=== PATIENT | female | born 1995 | race African-American/Black ===

== ENCOUNTER 2020-04-30 17:24 | Emergency (ER) | payer BC, OTHER ==
[2020-04-30] MEDS ORDERED: dexAMETHasone 10 MG/ML VIAL ONE (18:11)
[2020-04-30 18:21] VITALS: BP 151/110; TEMP 99.1; O2SAT 100
--- NOTE | 2020-04-30 21:37 | EDPHYS ---
Physician Documentation [facility] Name: Arline Newby Age: 24 yrs Sex: Female : 1995 Arrival Date: 04/30/2020 Time: 17:33 Bed 6 Private MD: ED Physician Say Rodriguez HPI: 04/30 17:56 This 24 yrs old Black Female presents to ER via Ambulatory with complaints of Cold jmm Symptoms, Flu Symptoms. 17:56 The patient or guardian reports cough. Onset: The symptoms/episode began/occurred jmm gradually, 1 day(s) ago. Modifying factors: The symptoms are alleviated by nothing. the symptoms are aggravated by nothing. Associated signs and symptoms: Pertinent positives: fever, sore throat. The patient has experienced similar episodes in the past. Historical: - Allergies: 17:36 No Known Drug Allergies; ll1 - PSHx: 17:36 None; ll1 - Immunization history:: Flu vaccine is not up to date. - Social history:: Smoking status: Patient reports the use of cigarette tobacco products, smokes one pack cigarettes per day. Patient/guardian denies using alcohol, street drugs. ROS: 17:56 Constitutional: Positive for body aches, chills. jmm 17:56 ENT: Positive for sore throat. 17:56 Respiratory: Positive for cough, Negative for shortness of breath. 17:56 All other systems are negative. Exam: 17:56 Constitutional: This is a well developed, well nourished patient who is awake, alert, jmm and in no acute distress. Head/Face: atraumatic. Eyes: EOMI, no conjunctival erythema appreciated 17:56 Neck: Trachea midline, Supple Chest/axilla: Normal chest wall appearance and motion. Cardiovascular: Regular rate and rhythm. No edema appreciated Respiratory: Normal respirations, no respiratory distress appreciated Abdomen/GI: Non distended, soft Back: Normal ROM Skin: General appearance color normal MS/ Extremity: Moves all extremities, no obvious deformities appreciated, no edema noted to the lower extremities Neuro: Awake and alert, normal gait Psych: Behavior is normal, Mood is normal, Patient is cooperative and pleasant 17:56 ENT: Posterior pharynx: erythema, that is mild. Vital Signs: 17:37 BP 151 / 110; Pulse 74; Resp 17; Temp 99.1; Pulse Ox 100% ; Height 5 ft. 1 in. (154.94 ll1 cm); Pain 0/10; MDM: 17:51 Patient medically screened. [facility] 17:57 Data reviewed: vital signs, nurses notes. Counseling: I had a detailed discussion with karena the patient and/or guardian regarding: the historical points, exam findings, and any diagnostic results supporting the discharge/admit diagnosis, the need for outpatient follow up, to return to the emergency department if symptoms worsen or persist or if there are any questions or concerns that arise at home. ED course: Patient is alert and non toxic in appearance in the ED. Patient declined COVID-19 swab. Patient is given strict return precautions. Patient understood and agrees with the plan of care. . 04/30 17:56 Order name: Strep karena Administered Medications: 18:09 Drug: Decadron 10 mg Route: IM; Site: right deltoid; vc 18:12 Follow up: Response: No adverse reaction sv Disposition: 18:50 Co-signature as Attending Physician, Say Rodriguez MD. rn Disposition: 04/30/20 17:58 Discharged to Home. Impression: Acute pharyngitis, Acute upper respiratory infection, unspecified. - Condition is Stable. - Discharge Instructions: Pharyngitis, Upper Respiratory Infection, Adult. - Prescriptions for Zithromax Z- Aron 250 mg Oral Tablet - take 1 tablet by ORAL route as directed for 5 days Day 1 - take two (2) tablets one time. Day 2, 3, 4 , 5 take one (1) tablet once daily.; 6 tablet. - Medication Reconciliation Form, Thank You Letter, Antibiotic Education, Prescription Opioid Use form. - Follow up: Private Physician; When: 2 - 3 days; Reason: Recheck today's complaints, Continuance of care, Re-evaluation by your physician. Signatures: Dispatcher [employer] Roxy Cabrera RN RN sv Mickail, Joel, PA PA jmm Nieto, Roman, MD MD rn Calcote, Vanessa, RN RN vc Lewis, Lynsay, RN RN ll1 Corrections: (The following items were deleted from the chart) 18:15 17:58 04/30/2020 17:58 Discharged to Home. Impression: Acute pharyngitis; Acute upper sv respiratory infection, unspecified. Condition is Stable. Forms are Medication Reconciliation Form, Thank You Letter, Antibiotic Education, Prescription Opioid Use. Follow up: Private Physician; When: 2 - 3 days; Reason: Recheck today's complaints, Continuance of care, Re-evaluation by your physician. karena
--- NOTE | 2020-04-30 21:37 | ER ---
Nurse's Notes [facility] Name: Arline Newby Age: 24 yrs Sex: Female : 1995 Arrival Date: 04/30/2020 Time: 17:33 Bed 6 Private MD: Diagnosis: Acute pharyngitis;Acute upper respiratory infection, unspecified Presentation: 04/30 17:37 Chief complaint: Patient states: Cough, sore throat, and body aches since last night. ll1 Coronavirus screen: Patient reports a cough. Patient denies shortness of breath or difficulty breathing. Patient denies measured and/or subjective temperature greater than 100.4F prior to today's visit. Patient denies travel on a cruise ship or to a country the [facility] currently lists as an affected area. Patient denies contact with known and/or suspected case of COVID-19. Patient instructed to continue to wear a mask when interacting with others. Patient moved to private room, placed in contact and droplet isolation with eye protection until further assessment. Ebola Screen: Patient denies travel to an Ebola-affected area in the 21 days before illness onset. Initial Sepsis Screen: Does the patient meet any 2 criteria? No. Patient's initial sepsis screen is negative. Risk Assessment: Do you want to hurt yourself or someone else? Patient reports no desire to harm self or others. Onset of symptoms was April 29, 2020. 17:37 Method Of Arrival: Ambulatory ll1 17:37 Acuity: MARY 4 ll1 18:14 Initial Sepsis Screen:. vc 18:15 Initial Sepsis Screen: Does the patient have a suspected source of infection? No. sv Patient's initial sepsis screen is negative. Historical: - Allergies: 17:36 No Known Drug Allergies; ll1 - PSHx: 17:36 None; ll1 - Immunization history:: Flu vaccine is not up to date. - Social history:: Smoking status: Patient reports the use of cigarette tobacco products, smokes one pack cigarettes per day. Patient/guardian denies using alcohol, street drugs. Screenin:13 Abuse screen: Denies threats or abuse. Denies injuries from another. Nutritional sv screening: No deficits noted. Tuberculosis screening: No symptoms or risk factors identified. Fall Risk None identified. Assessment: 18:09 Reassessment: Patient to be discharged after shot time. vc 18:13 General: Appears in no apparent distress. comfortable, Behavior is calm, cooperative, sv appropriate for age. Pain: Complains of pain in throat. Neuro: Level of Consciousness is awake, alert, obeys commands, Oriented to person, place, time, situation, Moves all extremities. Full function Gait is steady. Respiratory: Respiratory effort is even, unlabored, Respiratory pattern is regular, symmetrical. Derm: Skin is pink, warm \T\ dry. Vital Signs: 17:37 BP 151 / 110; Pulse 74; Resp 17; Temp 99.1; Pulse Ox 100% ; Height 5 ft. 1 in. (154.94 ll1 cm); Pain 0/10; ED Course: 17:33 Patient arrived in ED. fj1 17:38 Triage completed. ll1 17:38 Arm band placed on Patient placed in an exam room, on a stretcher. 1 17:41 Devang Fink PA is PHCP. [facility] 17:41 Say Rodriguez MD is Attending Physician. [facility] 17:45 Roxy Wilson RN is Primary Nurse. sv 18:12 No provider procedures requiring assistance completed. Patient did not have IV access sv during this emergency room visit. 18:13 Patient has correct armband on for positive identification. sv Administered Medications: 18:09 Drug: Decadron 10 mg Route: IM; Site: right deltoid; vc 18:12 Follow up: Response: No adverse reaction sv Outcome: 17:58 Discharge ordered by . jmm 18:12 Discharged to home ambulatory. sv 18:12 Condition: stable 18:12 Discharge instructions given to patient, Instructed on discharge instructions, follow up and referral plans. medication usage, Demonstrated understanding of instructions, follow-up care, medications, Prescriptions given X 1. 18:15 Patient left the ED. sv Signatures: Roxy Wilson RN RN Devang Fink PA PA jmm Calcote, Vanessa, RN RN vc James, Frank [facility] Yoselin Cohen RN RN [facility]
== END 2020-04-30 18:15 | disposition home or self-care (01) ==
LOC: ER 17:24
DX: J02.9 Acute pharyngitis, unspecified (principal); F17.210 Nicotine dependence, cigarettes, uncomplicated
CPT/HCPCS: 87070; 87081; J1100; 96372; 99283

== ENCOUNTER 2020-08-31 | Emergency (ER) | payer OTHER ==
--- OUTSIDE RECORDS SUMMARY | 2020-08-31 17:59 | XMS REPORT | Continuity of Care Document ---
:1995 Author Organization [facility] t Address [address] [place] [address] Care Team Providers Name Role Phone Unavailable Unavailable Unavailable Problems This patient has no known problems. Allergies, Adverse Reactions, Alerts This patient has no known allergies or adverse reactions. Medications Ordered Filled Start Stop Current Ordering Indication Dosage Frequency Signature Comments Components Source Medication Medication Date Date Medication? Clinician (SIG) Name Name Suzette Bradford Na Plaza [address] [facility] Procedures This patient has no known procedures. Encounters Start End Encounter Admission Attending Care Care Encounter Source Date/Time Date/Time Type Type Clinicians Facility Department ID 2020-08-24 2020-08-24 Outpatient [facility] [id number] [facility] 2020-07-13 2020-07-13 Outpatient [facility] [id number] [facility] 2020-06-16 2020-06-16 [facility] [id number] 2020-05-31 2020-05-31 [facility] [id number] [facility] [address] 12[facility]44[facility]00 12:44:00 [employer] [facility] Clin[facility] 2020-05-21 2020-05-21 [facility] [id number] [facility] [address] 08:06:00 08:06:00 [employer] [facility] 2020-05-18 2020-05-18 Outpatient Emily Dubon [id number] [facility] [address] 15:20:00 15:20:00 [employer] [facility] ent Clinics Results This patient has no known results.
--- OUTSIDE RECORDS SUMMARY | 2020-08-31 17:59 | XMS REPORT ---
:1995 Author Organization [employer] Care Team Providers Name Role Phone Plaza, Na Provider Role Unavailable Allergies No Known Allergies Problems Problem Type Condition Code Onset Dates Condition Statu s Problem Depression with anxiety F41.8 Acti ve Problem Memory deficit R41.3 Active Problem Vitamin D deficiency E55.9 Active Problem Seasonal allergic rhinitis, J30.2 Active unspecified trigger Problem Autism F84.0 Active Problem Thyroid goiter E04.9 Active Medications Medication Code Code Instructions Start End Status Dosage System Date Date Ergocalciferol [facility] [id number] 69422 UNIT May 31, Aug 28, Active 1 capsule Orally once a 20192019 Results No Known Results Summary Purpose [employer] Submission
--- OUTSIDE RECORDS SUMMARY | 2020-08-31 18:00 | XMS REPORT ---
:1995 Author Organization [facility] Address [address] [place], [facility] [address] [place] [address] Care Team Providers Name Role Phone Plaza Unavailable [phone] PROBLEMS Type Condition ICD9-CM [id number] Onset Condition SNOMED Code Notes Code Code Dates Status Problem Depression with F41.8 Active 086395631 anxiety Problem Vitamin D E55.9 Active 37907034 deficiency Problem Seasonal J30.2 Active 593747693 allergic rhinitis, unspecified trigger Problem Thyroid goiter E04.9 Active 0788133 Problem Autism F84.0 Active 047153136 Problem Memory deficit R41.3 Active 031820968 ALLERGIES No Known Allergies ENCOUNTERS from 1995 to 2020-06-28 Encounter Location Date Provider Diagnosis [facility] [address] [place] [address] Jun, 2020 [place] [address] IMMUNIZATIONS No Information SOCIAL HISTORY Tobacco Use: Social History Observation Description Date Details (start date - stop date) Current Smoker Sex Assigned At : Social History Observation Description Sex Assigned At Unknown PHQ9 Question Answer Notes Little interest or pleasure in doing things Several days Feeling down, depressed, or hopeless Several days Trouble falling or staying asleep or sleeping too much Not a t all Feeling tired or having little energy Not at all Poor appetite or overeating Not at all Feeling bad about yourself, or that you are a failure, or salazar ve Several days let yourself or your family down Trouble concentrating on things, such as reading the newspap er Several days or watching television Moving or speaking so slowly that other people could have Se veral days noticed; or the opposite, being so fidgety or restless that you have been moving around a lot more than usual Total Score 5 Interpretation Mild Depression Thoughts that you would be better off or of hurting Not at all yourself in some way Tobacco Use/Smoking Question Answer Notes Are you a current smoker REASON FOR REFERRAL No Information VITAL SIGNS No information MEDICATIONS Medication SIG (Take, Route, Start Date End Date Status Frequency, Duration) Ergocalciferol 98732 UNIT 1 capsule Orally once a 27 May, 2020 N 2019 Active week for 90 days PROCEDURES No Information RESULTS No Results REASON FOR VISIT thyroid us nodule MEDICAL (GENERAL) HISTORY Type Description Date Medical History Allergic rhinitis Medical History Depression Medical History Memory problem Medical History Anxiety Surgical History tubes in ear 1998 Surgical History 2017 Goals Section No Information Health Concerns No Information MEDICAL EQUIPMENT No Information MENTAL STATUS No Information FUNCTIONAL STATUS No Information ASSESSMENTS No Information PLAN OF TREATMENT Medication Medication Name Sig Start Date Stop Date Ergocalciferol 73122 UNIT 1 capsule Orally once a week for 27 2019Aug, 90 days Next Appt Details Provider Name:Mamie Plaza, 2020-07-13 09:0 0:00 AM, [address], [address], [place], [address], Insurance Providers Payer Name Payer Address Payer Insured Patient Coverage Cover age Phone Name Relationship to Start Date End Date Insured MEDICARE Attn Part B [id number] Cj Newby deborah 2018 [employer] Claims [phone] a M [address] [facility] [id number]
--- OUTSIDE RECORDS SUMMARY | 2020-08-31 18:00 | XMS REPORT ---
:1995 Author Organization [facility] Address [address], [address] [place] [address] Care Team Providers Name Role Phone Plaza Unavailable [phone] PROBLEMS Type Condition ICD9-CM [id number] Onset Condition SNOMED Code Notes Code Code Dates Status Problem Vitamin D E55.9 Active 27624200 deficiency Problem Depression with F41.8 Active 079754334 anxiety Problem Thyroid nodule E04.1 Active 999034550 Problem Seasonal J30.2 Active 964676875 allergic rhinitis, unspecified trigger Problem Thyroid goiter E04.9 Active 3043024 Problem Autism F84.0 Active 788867372 Problem Memory deficit R41.3 Active 410348843 ALLERGIES No Known Allergies ENCOUNTERS from 1995 to 2020-07-16 Encounter Location Date Provider Diagnosis [facility] [address] [facility] [address] [place] Jul, Na Plaza Vit rojo D deficiency [facility] [address], E55.9 ; [place] [address] with anxiety F 41.8 ; Seasonal allerg ic rhinitis, unspe cified trigger J30.2 a nd Thyroid nodule E04.1 IMMUNIZATIONS No Information SOCIAL HISTORY Tobacco Use: [...] REASON FOR REFERRAL No Information VITAL SIGNS Height 61.00 in Jul, Weight 178.4 lbs Jul, Temperature 98.1 degrees Fahrenheit Jul, BMI 33.70 kg/m2 Jul, Oximetry 98 % Jul, Respiratory Rate 16 /min Jul, Blood pressure systolic 131 mm Hg Jul, Blood pressure diastolic 76 mm Hg Jul, MEDICATIONS Medication SIG (Take, Route, Start Date End Date Status Frequency, Duration) Ergocalciferol 98746 UNIT 1 capsule Orally once a Jul, 6 2020 Active week for 90 days Ergocalciferol 65175 UNIT 1 capsule Orally once a May, 24 N 2019 Active week for 90 days PROCEDURES No Information RESULTS No Results REASON FOR VISIT lab f/u & flu shot, low vit D MEDICAL (GENERAL) HISTORY Type Description Date Medical History Allergic rhinitis Medical History Depression Medical History Memory problem Medical History Anxiety Surgical History tubes in ear 1998 Surgical History 2017 Goals Section No Information Health Concerns No Information MEDICAL EQUIPMENT No Information MENTAL STATUS No Information FUNCTIONAL STATUS No Information ASSESSMENTS Encounter Date Diagnosis Notes Jul, Depression with anxiety (ICD-10 - F41.8) Jul, Vitamin D deficiency (ICD-10 - E55.9) Jul, Seasonal allergic rhinitis, unspecified trigger (ICD-10 - J30.2) Jul, Thyroid nodule (ICD-10 - E04.1) PLAN OF TREATMENT Medication Medication Name Sig Start Date Stop Date Ergocalciferol 96485 UNIT 1 capsule Orally once a week for 2019Oct, 90 days Treatment Notes Assessment Notes Clinical Notes Vitamin D deficiency Increase foods rich in vitamin D such as leafy greens, low fat milk or yogurt. Stay physically active.For strong bones and osteoprosis prevention take calcium 1200mg daily and vitamin D3 (2,000mg) daily. continue to stay physically active and do weight bearing exercises.-- after completion of high dose vit D 3 month course, pt will need to take otc supplement vit D 3 = 2,0000iU daily to maintain normal level of vit D in body. Depression with anxiety continue current meds daily. Avoid caffeine. Make sure to exercise daily, take deep breaths, meditate, take frequent breaks. Take yourself away from the situation causing anxiety and stress by going for a 10-15 minute walk. Seasonal allergic rhinitis, Allergies- avoid triggers. Use unspecified trigger zyrtec or claritin otc once daily in AM to help control watery itchy eyes and runny nose. Use Flonase nasal spray two sprays once a day to help decrease inflammation and decrease nasal drainage/post nasal drip. Use saline nasal mist or irrigation as directed. Thyroid nodule thyroid nodule 06/08/20 repeat in 1 year to monitor stability. due 06/2021 Next Appt Details [employer] CHILANGO castillo/Katya f/u ozzie in 6 weeks Reason: Provider Name:Mamie Plaza 2020-07-27 02:0 0:00 PM, [address], [address], [place], [address], Provider Name:Mamie Plaza 2020-08-24 09:2 0:00 AM, [address], [address], [place], [address], Insurance Providers Payer Name Payer Address Payer Insured Patient Coverage Cover age Phone Name Relationship to Start Date End Date Insured [place] [address] [address] [phone] Cj Newby self 2019 [facility] [phone] a M [phone] MEDICARE Attn Part B [id number] Cj Newby self 2018 [employer] Claims [phone] a M [address] [place] [address]
--- OUTSIDE RECORDS SUMMARY | 2020-08-31 18:00 | XMS REPORT ---
:[address] [facility] Address [address], [address] [place] [address] Care Team Providers Name Role Phone Plaza Unavailable [phone] PROBLEMS Type Condition ICD9-CM [id number]-SS Onset Condition SNOMED Code Notes Code Code Dates Status Problem Vitamin D E55.9 Active 40636694 deficiency Problem Depression F41.8 Active 753444524 with anxiety Problem Thyroid nodule E04.1 Active 978116203 06/2021 next US due, stable thyroid nodule 06/08/2020 Problem Seasonal J30.2 Active 289729683 allergic rhinitis, unspecified trigger Problem Thyroid goiter E04.9 Active 9919420 Problem Autism F84.0 Active 977885588 Problem Memory deficit R41.3 Active 003212089 ALLERGIES No Known Allergies ENCOUNTERS from 1995 to 2020-08-30 Encounter Location Date Provider Diagnosis [facility] [address] [place] Aug, Na Plaza Thy roid nodule E04.1 ; Family Medicine [address], [place] [address] E55.9 ; Depres [place] with anxiety F4 1.8 and Seasonal allerg ic rhinitis, unspe cified trigger J30.2 IMMUNIZATIONS No Information SOCIAL HISTORY Tobacco Use: [...] No Information VITAL SIGNS Height 61.00 in Aug, Weight 180.4 lbs Aug, Temperature 97.9 degrees Fahrenheit Aug, BMI 34.08 kg/m2 Aug, Oximetry 98 % Aug, Respiratory Rate 15 /min Aug, Blood pressure systolic 121 mm Hg Aug, Blood pressure diastolic 56 mm Hg Aug, MEDICATIONS Medication SIG (Take, Route, Notes Start Date End Date Status Frequency, Duration) Ergocalciferol 48651 UNIT 1 capsule Orally once a Active week for 90 days PROCEDURES No Information RESULTS No Results REASON FOR VISIT 6 week follow up, low vitamin D MEDICAL (GENERAL) HISTORY Type Description Date Medical History Allergic rhinitis Medical History Depression Medical History Memory problem Medical History Anxiety Surgical History tubes in ear 1998 Surgical History 2017 Goals Section No Information Health Concerns No Information MEDICAL EQUIPMENT No Information MENTAL STATUS No Information FUNCTIONAL STATUS No Information ASSESSMENTS Encounter Date Diagnosis Assessment Notes Treatment Notes Treatm ent Clinical Notes Aug, Thyroid nodule 06/2021 next US thyroid nodule (ICD-10 - E04.1) due, stable 06/08/20 repeat in 1 thyroid nodule year to monitor 06/08/2020 stability. due 06/2021Aug, Vitamin D Increase foods deficiency rich in vitamin D (ICD-10 - E55.9) such as leafy greens, low fat milk or yogurt. Stay physically active. For strong bones and osteoprosis prevention take calcium 1200mg daily and vitamin D3 (2,000mg) daily. continue to stay physically active and do weight bearing exercises. -- after completion of high dose vit D 3 month course, pt will need to take otc supplement vit D 3 = 2,0000iU daily to maintain normal level of vit D in body. Aug, Depression with continue current anxiety (ICD-10 - meds daily. Avoid F41.8) caffeine. Make sure to exercise daily, take deep breaths, meditate, take frequent breaks. Take yourself away from the situation causing anxiety and stress by going for a 10-15 minute walk. Aug, Seasonal allergic Allergies- avoid rhinitis, triggers. Use unspecified zyrtec or claritin trigger (ICD-10 - otc once daily in J30.2) AM to help control watery itchy eyes and runny nose. Use Flonase nasal spray two sprays once a day to help decrease inflammation and decrease nasal drainage/post nasal drip. Use saline nasal mist or irrigation as directed. Aug, Other -- Medications reviewed and updated. -- Dietary and Lifestyle modifications discussed with patient regardi ng low fat low kirsty t diet diet, exer cise and weight management. -- Treatment options, risks and benefits, side effects reviewe d in detail. Patient accepts risk. -- Advised on signs/symptoms to monitor and whe n to call clinic and /or visit the [facility]. Patient verbalized understanding a nd agreed with александр n. -- Greater than 15 minutes was spe nt with patient du ring this encounter, of which >50% of t he time was spent counseling and coordinating ca re including but n ot limited to discussion of t est results, diagno stic or treatment recommendations , prognosis, risk s and benefits of management opti ons, instructions, education, compliance and or risk reduction. PLAN OF TREATMENT Medication Medication Name Sig Start Date Stop Date Ergocalciferol 88746 UNIT 1 capsule Orally once a week for 90 days Treatment Notes Assessment Notes Clinical Notes Thyroid nodule thyroid nodule 06/08/20 repeat in 1 year to monitor stability. due 06/2021 Vitamin D deficiency Increase foods rich in [...] saline nasal mist or irrigation as directed. Next Appt Details 6 Months Reason: Insurance Providers Payer Name Payer Address Payer Insured Patient Coverage Cover age Phone Name Relationship to Start Date End Date Insured MEDICARE Attn Part B [id number] Cj Newby 2018 [employer] Claims [phone] a M [address] [place] [address] [employer] [address] [address] [phone] Cj Newby 2019 [facility] [phone] a M [phone]
--- NOTE | 2020-08-31 18:16 | EDPHYS ---
Physician Documentation [facility] Name: Arline Newby Age: 25 yrs Sex: Female : 1995 Arrival Date: 08/31/2020 Time: 17:59 Bed 20 Private MD: ED Physician Sheri Boateng HPI: 08/31 18:58 This 25 yrs old Black Female presents to ER via EMS with complaints of mother forced pt kb to come. 18:58 Pt reports her mother has "legal guardianship" over her and tonight she called the senior validation engineer kb to prove a point and they all made her come to the ER. Pt states her mother is trying to make plans for her and they got into an argument because she told the mother she wasn't going to cancel plans with her fiance to do whatever the mother wanted her to do. This led up to the mother calling the police to prove that she has full authority over the pt. Pt reports "I'm happy and thriving, I don't know why she is doing this now." Pt denies suicidal or homicidal ideations. . The patient has not experienced similar symptoms in the past. The patient has not recently seen a physician. I spoke with mother. Mother states "She lives in her own apartment in the same complex as me. She moved this boy in with her and ever since then she doesn't want to go to therapy or do any of the things she needs to do. She won't let me into the apartment to check on things. I called the senior validation engineer to force her to go to therapy, but they said we should come to the ER and y'all could transfer her to an inpatient hospital for therapy. I'm trying to get rid of the boy, but they told me how to do that.". WOOD FENCE ERECTOR: 18:20 LMP 08/10/2020 ca1 Historical: - Allergies: 18:06 No Known Allergies; em - Home Meds: 18:06 None [Active]; em - PMHx: 18:06 None; em - PSHx: 18:06 None; em - Immunization history:: Adult Immunizations up to date. - Social history:: Smoking status: Patient denies any tobacco usage or history of. ROS: 18:58 Constitutional: Negative for fever, chills, and weight loss, Cardiovascular: Negative kb for chest pain, palpitations, and edema, Respiratory: Negative for shortness of breath, cough, wheezing, and pleuritic chest pain, Abdomen/GI: Negative for abdominal pain, nausea, vomiting, diarrhea, and constipation, MS/Extremity: Negative for injury and deformity, Skin: Negative for injury, rash, and discoloration, Neuro: Negative for headache, weakness, numbness, tingling, and seizure, Psych: Negative for depression, anxiety, suicide ideation, homicidal ideation, and hallucinations. Exam: 18:58 Constitutional: This is a well developed, well nourished patient who is awake, alert, kb and in no acute distress. Head/Face: Normocephalic, atraumatic. Chest/axilla: Normal chest wall appearance and motion. Nontender with no deformity. No lesions are appreciated. Cardiovascular: Regular rate and rhythm with a normal S1 and S2. No gallops, murmurs, or rubs. Normal PMI, no JVD. No pulse deficits. Respiratory: Lungs have equal breath sounds bilaterally, clear to auscultation and percussion. No rales, rhonchi or wheezes noted. No increased work of breathing, no retractions or nasal flaring. Abdomen/GI: Soft, non-tender, with normal bowel sounds. No distension or tympany. No guarding or rebound. No evidence of tenderness throughout. Skin: Warm, dry with normal turgor. Normal color with no rashes, no lesions, and no evidence of cellulitis. MS/ Extremity: Pulses equal, no cyanosis. Neurovascular intact. Full, normal range of motion. Neuro: Awake and alert, GCS 15, oriented to person, place, time, and situation. Cranial nerves II-XII grossly intact. Motor strength 5/5 in all extremities. Sensory grossly intact. Cerebellar exam normal. Normal gait. Psych: Awake, alert, with orientation to person, place and time. Behavior, mood, and affect are within normal limits. Vital Signs: 18:01 Pulse 87; Resp 18; Temp 98.4(O); Pulse Ox 100% on R/A; Pain 0/10; em 18:19 BP 148 / 87; ca1 MDM: 18:09 Patient medically screened. kb 18:14 Data reviewed: vital signs, nurses notes. Data interpreted: Pulse oximetry: on room air kb is 100 %. Interpretation: normal. Counseling: I had a detailed discussion with the patient and/or guardian regarding: the historical points, exam findings, and any diagnostic results supporting the discharge/admit diagnosis, the need for outpatient follow up, a family practitioner, to return to the emergency department if symptoms worsen or persist or if there are any questions or concerns that arise at home. Administered Medications: No medications were administered Disposition: 18:14 Person with feared health complaint in which no diagnosis is made. kb Disposition: 08/31/20 18:15 Discharged to Home. Impression: Encounter for screening, unspecified. - Condition is Stable. - Medication Reconciliation Form, Thank You Letter, Antibiotic Education, Prescription Opioid Use form. - Follow up: Emergency Department; When: As needed; Reason: Worsening of condition. Follow up: Private Physician; When: 2 - 3 days; Reason: Recheck today's complaints, Continuance of care, Re-evaluation by your physician. Addendum: 09/04/2020 03:31 Co-signature as Attending Physician, Sheri Boateng MD. m a2 Signatures: Mary Ellen Holley, NAVEED-C HORSE SHOER-CkWenceslao Aragon, CHARLIE RN nadir Lanza, [facility] Kilo, MD JEFF Wade ma2 Corrections: (The following items were deleted from the chart) 08/31 18:43 18:15 08/31/2020 18:15 Discharged to Home. Impression: Encounter for screening, mt unspecified. Condition is Stable. Forms are Medication Reconciliation Form, Thank You Letter, Antibiotic Education, Prescription Opioid Use. Follow up: Emergency Department; When: As needed; Reason: Worsening of condition. Follow up: Private Physician; When: 2 - 3 days; Reason: Recheck today's complaints, Continuance of care, Re-evaluation by your physician. kb
--- NOTE | 2020-08-31 18:16 | ER ---
Nurse's Notes [facility] Name: Arline Newby Age: 25 yrs Sex: Female : 1995 Arrival Date: 08/31/2020 Time: 17:59 Bed 20 Private MD: Diagnosis: Encounter for screening, unspecified Presentation: 08/31 18:01 Chief complaint: EMS states: mother called EMS for her daughter to get evaluated for em psych problem because she has some form that gives her order to send her daughter to the hospital, EMS reports her having some form of autism, pt denies any hx of being depressed/bipolar, pt denies SI/HI, pt request that her mother not come back into the room with pt, registration staff informed. Coronavirus screen: Client denies travel out of the [place] in the last 14 days. Ebola Screen: Patient negative for fever greater than or equal to 101.5 degrees Fahrenheit, and additional compatible Ebola Virus Disease symptoms Patient denies exposure to infectious person. Patient denies travel to an Ebola-affected area in the 21 days before illness onset. No symptoms or risks identified at this time. Initial Sepsis Screen: Does the patient meet any 2 criteria? No. Patient's initial sepsis screen is negative. Does the patient have a suspected source of infection? No. Patient's initial sepsis screen is negative. Risk Assessment: Do you want to hurt yourself or someone else? Patient reports no desire to harm self or others. Onset of symptoms was August 31, 2020. 18:01 Method Of Arrival: EMS: [facility] em 18:01 Acuity: MARY 5 em DIRECTOR PHARMACOLOGY: 18:20 LMP 08/10/2020 ca1 Historical: - Allergies: 18:06 No Known Allergies; em - Home Meds: 18:06 None [Active]; em - PMHx: 18:06 None; em - PSHx: 18:06 None; em - Immunization history:: Adult Immunizations up to date. - Social history:: Smoking status: Patient denies any tobacco usage or history of. Screenin:19 Abuse screen: Denies threats or abuse. Denies injuries from another. Nutritional ca1 screening: No deficits noted. Tuberculosis screening: No symptoms or risk factors identified. Fall Risk None identified. Assessment: 18:15 General: Appears in no apparent distress. comfortable, Behavior is calm, cooperative, ca1 appropriate for age. General: Pt states, " I had a discussion with my mom. She made plans for me and that I already made plans with my friends. She made plans with me and my cousin who she pays to hangout with me. I'd rather hangout with my friends than be with people who don't really want to hangout with me. I told her mom I am an adult now and I can make my own plans. She has this paper when I was younger and she called the school supervisor to prove a point." Pt denies HI/SI. Pt denies hx of depression or anxiety. Pain: Denies pain. Neuro: Level of Consciousness is awake, alert, obeys commands, Oriented to person, place, time, situation. Derm: Skin is intact, is healthy with good turgor, Skin is pink, warm \\T\\ dry. Musculoskeletal: Circulation, motion, and sensation intact. Capillary refill < 3 seconds. Vital Signs: 18:01 Pulse 87; Resp 18; Temp 98.4(O); Pulse Ox 100% on R/A; Pain 0/10; em 18:19 BP 148 / 87; ca1 ED Course: 17:59 Patient arrived in ED. iw 18:05 Hali Jalloh, CHARLIE is Primary Nurse. ca1 18:05 Triage completed. em 18:06 Arm band placed on. em 18:09 Mary Ellen Holley FNP-C [facility]. kb 18:09 Sheri Boateng MD is Attending Physician. kb 18:19 Patient has correct armband on for positive identification. Bed in low position. Call ca1 light in reach. Side rails up X 1. Pulse ox on. NIBP on. Warm blanket given. 18:22 No provider procedures requiring assistance completed. Patient did not have IV access ca1 during this emergency room visit. Administered Medications: No medications were administered Outcome: 18:15 Discharge ordered by . kb 18:22 Discharged to home ambulatory. ca1 18:22 Condition: stable 18:22 Discharge instructions given to patient, Instructed on discharge instructions, follow up and referral plans. Demonstrated understanding of instructions, follow-up care. 18:43 Patient left the ED. mt Signatures: Mary Ellen Holley FNP-C FNP-Ckb Munoz, Edgar RN RN em Kiah Crandall RN RN Guerline Yeboah mt Shubham, Hali, RN RN ca1
== END 2020-08-31 18:43 | disposition home or self-care (01) ==
DX: Z71.1 Person with feared health complaint in whom no diagnosis is made (principal)
CPT/HCPCS: 99283

== ENCOUNTER 2022-12-19 14:47 | Emergency (ER) | payer OTHER ==
--- OUTSIDE RECORDS SUMMARY | 2022-12-19 14:50 | XMS REPORT | Continuity of Care Document ---
:1995 Author Organization [facility] t Address [address] [place] [address] Care Team Providers Name Role Phone Mamie Plaza Attending Clinician Unavailable Payers Payer Name Policy Type Policy Number Effective Date Expiration Date S govind [facility] [id number] 2018 Common 00:00:00 [place] [id number] 2019 Common HEALTHCARE 00:00:00 [place] [id number] 2019 Common HEALTHCARE 00:00:00 [facility] MEDICARE NOVITAS [id number] 2018 Common 00:00:[address] [facility] MEDICARE NOVITAS [id number] 2018 Common 00:00:00 [facility] Problems Condition Condition Condition Status Onset Resolution Last Treating Co mments Source Name Details Category Date Date Treatment Clinician Date [id number] Seasonal Problem Active Comm on allergic Spirit rhinitis, - [facility] unspecif[facility] [id number] Thyroid Problem Active Common goiter [facility] [id number] Autism Problem Active Common [facility] [id number] Memory Problem Active Common deficit [facility] [id number] Thyroid Problem Active Commo n nodule [facility] [id number] Depression Problem Active Co mmon with [facility] anxiety [facility] [id number] Vitamin D Problem Active Comm on deficiency [facility] Allergies, Adverse Reactions, Alerts This patient has no known allergies or adverse reactions. Social History Social Habit Start Date Stop Date Quantity Comments Source History of Tobacco Current Smoker Co mmon [facility] - Use [facility] Sex Assigned At Com mon [facility] Smoking Status Start Date Stop Date Source Current Smoker 2020-08-24 00:00:00 Common [facility] Medications Ordered Filled Start Stop Current Ordering Indication Dosage Frequency Signature Comments Components Source Medication Medication Date Date Medication? Clinician (SIG) Name Name Ergocalcife Ergocalcife 2019- 2021- No 1{capsu Ergocalcif rol 25087 rol 30324 0-06 le} randy [id number] UNIT UNIT 00:00: 00:00 UNIT 00 :00 Ergocalcife Ergocalcife 2020-0 2020- No Na Plaza 1 capsule Common rol rol 05-31 Spirit 00:00: 00:00 - [facility] 00 :00 [facility] Ergocalcife Ergocalcife 2020-0 2020- No 1{capsu Ergocalcif rol 95894 rol 83912 05-31 11-24 le} randy [id number] UNIT UNIT 00:00: 00:00 UNIT 00 :00 Ergocalcife Ergocalcife 2020-0 2020- No 1{capsu Ergocalcif rol 05918 rol 79939 05-31 11-24 le} randy [id number] UNIT UNIT 00:00: 00:00 UNIT 00 :00 Ergocalcife Ergocalcife No 1{capsu Ergocalcif rol 44435 rol 40831 le} randy 60049 UNIT UNIT UNIT Vital Signs Vital Name Observation Time Observation Value Comments Source height 2020-08-24 09:20:00 61.00 [in_i] [facility] weight 2020-08-24 09:20:00 180.4 [lb_av] [facility] temperature 2020-08-24 09:20:00 97.9 [degF] [facility] bmi 2020-08-24 09:20:00 34.08 kg/m2 [facility] oximetry 2020-08-24 09:20:00 98 % Common [facility] respiratory rate 2020-08-24 09:20:00 15 /min Comm on [facility] blood pressure 2020-08-24 09:20:00 121 mm[Hg] Common [facility] - systolic [facility] blood pressure 2020-08-24 09:20:00 56 mm[Hg] Common [facility] - diastolic [facility] height 2020-07-13 09:00:00 61.00 [in_i] Common [facility] weight 2020-07-13 09:00:00 178.4 [lb_av] [facility] temperature 2020-07-13 09:00:00 98.1 [degF] [facility] bmi 2020-07-13 09:00:00 33.70 kg/m2 [facility] oximetry 2020-07-13 09:00:00 98 % [facility] respiratory rate 2020-07-13 09:00:00 16 /min Comm on [facility] blood pressure 2020-07-13 09:00:00 131 mm[Hg] [facility] [place] systolic [facility] blood pressure 2020-07-13 09:00:00 76 mm[Hg] [facility] [place] diastolic [facility] Procedures This patient has no known procedures. Encounters Start End Encounter Admission Attending Care Care Encounter Source Date/Time Date/Time Type Type Clinicians Facility Department ID 2022-08-26 [facility], Na STLC STLC [id number] 2 Common 09:38:02 [facility] 2022-08-21 Outpatient Plaza, Na STLMLC STLMLC [id number] 2 Common 12:27:01 [facility] 2022-08-20 Outpatient Plaza, Na STLMLC STLMLC [id number] 2 Common 11:29:02 [facility] 2021-10-30 Outpatient [facility], Na STLMLC STLMLC [id number] 2 Common 11:58:09 [facility] 2021-10-30 Outpatient Plaza, Na STLMLC STLMLC [id number] 2 Common 11:53:43 [id number] [facility] 2021-10-30 Outpatient Plaza, Na STLMLC STLMLC [id number] 2 Common 11:49:52 [id number] [facility] 2021-10-30 Outpatient Plaza, Na STLMLC STLMLC [id number] 2 Common 11:38:00 [id number] [facility] 2020-08-24 2020-08-24 OFFICE STLMLC STLMLC [id number] Co mmon 00:00:00 00:00:00 VISIT EST Spir it PT LEVEL [address] [place] [address] 2020-07-13 2020-07-13 OFFICE STLMLC STLMLC [id number] Co mmon 00:00:00 00:00:00 VISIT EST Spir it PT LEVEL 3 [facility] 2020-06-16 2020-06-16 (TEL) STLMLC STLMLC [id number] Co mmon 00:00:00 00:00:00 [facility] 2020-05-31 2020-05-31 [facility] [id number] Common 12:44:00 12:44:[address] [facility] 2020-05-21 2020-05-21 [id number] Common 08:06:00 08:06:[address] [facility] 2020-05-18 2020-05-18 [id number] Common 15:20:00 15:20:[address] [facility] Results This patient has no known results.
[2022-12-19 15:23] LABS: Urine Blood 3+ (Negative); Urine Glucose Negative (Negative); Urine Protein Negative (Negative); Urine Specific Gravity 1.015 (1.005-1.030); Urine pH 6.5 (5.0-7.0)
--- NOTE | 2022-12-19 15:24 | EDPHYS ---
Physician Documentation [facility] Name: Arline Newby Age: 27 yrs Sex: Female : 1995 Arrival Date: 12/19/2022 Time: 14:55 Bed IW2 Private MD: ED Physician Fredrick Padgett HPI: 12/19 15:04 This 27 yrs old Black Female presents to ER via Unassigned with complaints of fatigue. kb 15:08 Patient states she missed her. So she came to get a test on. Reports fatigue kb recently. LMP 11/11/2022. The patient has not experienced similar symptoms in the past. The patient has not recently seen a physician. Historical: - Allergies: 15:17 No Known Allergies; hb - Home Meds: 15:17 None [Active]; hb - PMHx: 15:17 None; hb - PSHx: 15:17 None; hb ROS: 15:03 Constitutional: Negative for fever, chills, and weight loss. kb 15:03 Constitutional: Negative for fever, chills, and weight loss. 15:03 Constitutional: Positive for fatigue. 15:03 : Positive for missed period. 15:03 All other systems are negative. Exam: 15:04 Constitutional: This is a well developed, well nourished patient who is awake, alert, kb and in no acute distress. Head/Face: Normocephalic, atraumatic. ENT: Moist Mucous membranes Cardiovascular: Regular rate and rhythm with a normal S1 and S2. No gallops, murmurs, or rubs. No pulse deficits. Respiratory: Respirations even and unlabored. No increased work of breathing. Talking in full sentences Abdomen/GI: Soft, non-tender. No distention Skin: Warm, dry with normal turgor. Normal color. MS/ Extremity: Pulses equal, no cyanosis. Neurovascular intact. Full, normal range of motion. Neuro: Awake and alert, GCS 15, oriented to person, place, time, and situation. Moves all extremities. Normal gait. Vital Signs: 15:16 BP 126 / 76; Pulse 77; Resp 16; Temp 97.3; Pulse Ox 100% on R/A; Weight 81.65 kg; hb Height 5 ft. 1 in. ; Pain 0/10; 15:16 Body Mass Index 34.01 (81.65 kg, 154.94 cm) hb 15:16 Pain Scale: Adult hb MDM: 14:59 Patient medically screened. kb 15:04 Data reviewed: vital signs, nurses notes. kb 15:04 Differential diagnosis: Irregular menstruation, . kb 15:08 Counseling: I had a detailed discussion with the patient and/or guardian regarding: the kb historical points, exam findings, and any diagnostic results supporting the discharge/admit diagnosis, lab results, the need for outpatient follow up, an OB/Gyne specialist, to return to the emergency department if symptoms worsen or persist or if there are any questions or concerns that arise at home. 12/19 15:03 Order name: Urine Dipstick-Ancillary (obtain specimen) 12/19 15:03 Order name: Urine Test (obtain specimen) 12/19 15:23 Order name: Urine Dipstick-Ancillary; Complete Time: 15:23 EDMS Administered Medications: No medications were administered Disposition Summary: 12/19/22 15:24 Discharge Ordered Location: Home kb Condition: Stable kb Diagnosis - Encounter for test, result negative kb Followup: kb - With: Emergency Department - When: As needed - Reason: Worsening of condition Followup: kb - With: Private Physician - When: 2 - 3 days - Reason: Recheck today's complaints, Continuance of care, Re-evaluation by your physician Forms: - Medication Reconciliation Form kb - Thank You Letter kb - Antibiotic Education kb - Prescription Opioid Use kb Signatures: Mary Ellen Holley, ELENA LUCIO-Sania Ramírez, RN RN hb
--- NOTE | 2022-12-19 15:24 | ER ---
Nurse's Notes [facility] Name: Arline Newby Age: 27 yrs Sex: Female : 1995 Arrival Date: 12/19/2022 Time: 14:55 Bed IW2 Private MD: Diagnosis: Encounter for test, result negative Presentation: 12/19 15:16 Chief complaint: Fatigue, decreased appetite, missed period, wants test. hb Coronavirus screen: At this time, the client does not indicate any symptoms associated with coronavirus-19. Ebola Screen: No symptoms or risks identified at this time. Initial Sepsis Screen: Does the patient meet any 2 criteria? No. Patient's initial sepsis screen is negative. Does the patient have a suspected source of infection? No. Patient's initial sepsis screen is negative. Risk Assessment: Do you want to hurt yourself or someone else? Patient reports no desire to harm self or others. Onset of symptoms was December 19, 2022. 15:16 Method Of Arrival: Ambulatory hb 15:16 Acuity: MARY 4 hb Historical: - Allergies: 15:17 No Known Allergies; hb - Home Meds: 15:17 None [Active]; hb - PMHx: 15:17 None; hb - PSHx: 15:17 None; hb Vital Signs: 15:16 BP 126 / 76; Pulse 77; Resp 16; Temp 97.3; Pulse Ox 100% on R/A; Weight 81.65 kg; hb Height 5 ft. 1 in. ; Pain 0/10; 15:16 Body Mass Index 34.01 (81.65 kg, 154.94 cm) hb 15:16 Pain Scale: Adult hb ED Course: 14:55 Patient arrived in ED. mr 14:59 Mary Ellen Holley FNP-C is [facility]. kb 14:59 Fredrick Padgett MD is Attending Physician. kb 15:17 Triage completed. hb 15:17 Arm band placed on. hb Administered Medications: No medications were administered Outcome: 15:24 Discharge ordered by . kb Signatures: Mary Ellen Holley FNP-C FNP-Ckb Rivera, Mary mr Sania Quarles, RN RN hb
[2022-12-19 17:37] LABS: Urine Specific Gravity/Preg 1.015 (1.005-1.030)
[2022-12-19 18:30] VITALS: BP 126/76; TEMP 97.3; O2SAT 100
== END 2022-12-19 16:04 | disposition home or self-care (01) ==
LOC: ER 14:47
DX: Z32.02 Encounter for pregnancy test, result negative (principal)
CPT/HCPCS: 81003; 81025; 99281